=== PATIENT | male | born 1955 | race Caucasian/White ===

== ENCOUNTER → 2017-09-07 12:36 | Outpatient (CLI) | payer MEDICAID ==
[2013-12-17 08:02] VITALS: BMI 28.4
[~2017-09-07 12:36] MED LIST: ERYTHROCIN STE500 MG PO; NORCO 10/325 TA1 TA1 PO; TENORMIN50 MG PO; ZESTRIL40 MG PO
== END | disposition home or self-care (01) ==
LOC: D.US 12:36
DX: I65.23 Occlusion and stenosis of bilateral carotid arteries (principal)

== ENCOUNTER → 2019-03-30 13:20 | Outpatient (CLI) | payer MEDICARE ==
[2013-12-17 08:02] VITALS: BMI 28.4
== END | disposition home or self-care (01) ==
LOC: D.US 13:20
PROVIDERS: ATTEND Internal Medicine Cardiovascular Disease
DX: I65.23 Occlusion and stenosis of bilateral carotid arteries (principal)

== ENCOUNTER 2019-07-23 23:17 | Inpatient (IN) | payer MEDICARE ==
[~2019-07-23] VITALS: Ht 182.9 cm; Wt 95.5 kg
--- NOTE | ~2019-07-23 | HEMODYNAMI ---
PATIENT:CARLOS MACIAS MEDICAL RECORD: [id number] : 51 [id number] ADMISSION DATE: 07/24/19 Generatedon:07/26/201914:30 Patient name: CARLOS MACIAS Patient #: [id number] SSN: [id number] : 1955 Date of study: 07/26/2019 Page: Of Hemodynamic Procedure Report Patient Data Patient Demographics Procedure consent was obtained First Name: CARLOS Gender: Male Last Name: GILBERTO : 1955 Middle Initial: PETER Age: 63 year(s) Patient #: [id number] Race: SSN: [id number] Additional ID: [id number] Contact details Address: [address] [place] [address] State: [place] City: [facility] Zip code: [address] Past Medical History Allergies Allergen Reaction Date Comments Reported Other allergy 07/26/2019 PCN, IBUPROFEN Admission Admission Data Admission Date: 07/24/2019 Admission Time: 2:25 Admit Source: Emergency Insurance Payor: Medicare department Room #: D.2116 Height (in.): 72 BSA: 2.17 (m2) Height (cm.): 182.88 BMI: 28.4 (kg/m2) Weight (lbs.): 209.44 Weight (kg.): 95 Lab Results Lab Result Date: 07/26/2019 Lab Result Time: 0:00 Biochemistry Name Units Result Min Max BUN mg/dl 18 --(---*)-- 7 18 Creatinine mg/dl 1.3 --(---*)-- 0.6 1.3 eGFR ml/min 59 *-(----)-- 90 120 NONAFRICAN CBC Name Units Result Min Max Hematocrit % 35.9 *-(----)-- 42 54 Hemoglobin g/dl 11.7 *-(----)-- 13.5 17.5 Procedure Procedure Types Cath Procedure Diagnostic Procedure [facility] w/Coronaries Procedure Description Procedure Date Procedure Date: 07/26/2019 Procedure Start Time: 14:14 Procedure End Time: 14:28 Procedure Staff Name Function Joe Tam MD Performing Physician Anne Marie Canas RT Monitor Shelby Porter RT Scrub Noni Sesay RN Nurse Nadia Montejo RT Monitor Procedure Data Cath Procedure Fluoroscopy Diagnostic fluoroscopy Total fluoroscopy Time: 2.7 time: 2.7 min min Diagnostic fluoroscopy Total fluoroscopy dose: 428 dose: 428 mGy mGy Contrast Material Contrast Material Type Amount (ml) Isovue 300 71 Entry Location Entry Primary Successful Side Size Upsize Upsize Entry Closure Munoz ccessful Closure Location (Fr) 1 (Fr) 2 (Fr) Remarks Device Remarks Radial Right 6 Fr Mechanical artery Short Compression Estimated blood loss: 5 ml Diagnostic catheters Device Type Used For End Catheter Placement DIAGNOSTIC [place] 110cm 5 Procedure Fr catheter ([id number]) DIAGNOSTIC Pigtail 5Fr LV Angiography catheter ([id number]) Procedure Complications No complications Procedure Medications Medication Administration Route Dosage 0.9% NaCl I.V. 100 ml/hr Oxygen etCO2 Nasal cannula 2 l/min Lidocaine 2% added to field 20 Heparin Flush Bag added to field 2 bags (1000units/500ml NS) Radial Cocktail added to field 1 syringe (Verapamil 2mg/Nitro 400mcg/Heparin 1500units) Versed I.V. 2 mg Fentanyl I.V. 50 mcg Benadryl I.V. 50 mg Hemodynamics Rest BSA: 2.17 (m2) HGB: 11.7 (g/dl) O2 Consumption: Estimated: 250.48 (ml/min) O2 Co nsumption indexed: Estimated:115.43 (ml/min/m) Heart Rate: 67 (bpm) Pressure Samples Time Site Value (mmHg) Purpose Heart Use Rate(bpm) 14:21 LV 119/7,11 EDP 66 Gradients Valve Time Site Site Mean SEP/DFP Peak To Heart Use 1 2 (mmHg) (sec/min) Peak Rate (mmHg) (bpm) Aortic 14:22 LV AO 67 Snapshots Pre Cath Intra NCS Post Cath Vital Signs Time Heart Resp SPO2 etCO2 NIBP (mmHg) Rhythm Pain Sedation Rate (ipm) (%) (mmHg) Status Level (bpm) 13:56:29 68 15 98 15 144/87(115) NSR 0 (11) 10(A) , No pain 14:00:43 67 21 100 11 137/83(100) NSR 0 (11) 10(A) , No pain 14:04:55 64 22 98 17 145/81(109) NSR 0 (11) 10(A) , No pain 14:09:09 64 17 96 17 142/86(107) NSR 0 (11) 10(A) , No pain 14:13:23 66 18 99 20 133/83(98) NSR 0 (11) 10(A) , No pain 14:17:37 65 15 99 21.9 123/74(96) NSR 0 (11) 10(A) , No pain 14:21:49 68 20 98 18.1 130/72(104) NSR 0 (11) 10(A) , No pain 14:26:01 64 19 96 18.1 135/80(114) NSR 0 (11) 10(A) , No pain Medications Time Medication Route Dose Verified Delivered Reason Notes E ffectiveness by by 13:51:27 Benadryl I.V. 50 mg Joe Cheney used for Anel Lázaro procedure MD JOLLEY 13:51:31 0.9% NaCl I.V. 100 Joe Cheney used for ml/hr Anel Lázaro procedure MD JOLLEY 13:51:37 Oxygen etCO2 2 l/min Joe Cheney used for Nasal Anel Lázaro procedure cannula MD JOLLEY 13:51:42 Lidocaine 2% added 20ml Joe Diaz for local to vial Anel Anel anesthetic field MD MACIAS 13:51:48 Heparin Flush added 2 bags Joe Diaz used for Bag to Anel Anel procedure (1000units/500ml field MD MACIAS NS) 13:51:53 Radial Cocktail added 1 Joe Diaz used for (Verapamil to syringe Anel Anel procedure 2mg/Nitro field MD MACIAS 400mcg/Heparin 1500units) 14:12:24 Versed I.V. 2 mg Joe Conroya for AnelJairo Sesay sedation MD JOLLEY 14:12:35 Fentanyl I.V. 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 Start room use. 13:37:11 Informed consent obtained and on chart 13:38:05 Procedure Status Urgent Heart Cath (IP). 13:38:07 Time tracking: Regular hours (M-F 7:00 - 5:00) 13:38:10 Plan of Care:Hemodynamics will remain stable., Cardiac rhythm will remain stable., Comfort level will be maintained., Respiratory function will remain adequate., Patient/ family verbilizes understanding of procedure., Procedure tolerated without complication., Recovers from procedure without complications.. 13:38:17 H&P Date Dictated: 07/26/2019 Within 30 days and on chart.. 13:39:49 Patient allergic to Other allergyPCN, IBUPROFEN 13:43:11 Lab Result : BUN 18 mg/dl 13:43:11 Lab Result : Creatinine 1.3 mg/dl 13:43:11 Lab Result : eGFR NONAFRICAN 59 ml/min 13:43:11 Lab Result : Hemoglobin 11.7 g/dl 13:43:11 Lab Result : Hematocrit 35.9 % 13:43:48 ACCPatient has been prescribed/administered the following anti-anginal medication within the last 2 weeks: Beta Teto, KIMMIE-Inhibitor 13:43:53 ACC Patient presents with Stable Angina CCS Anginal Class 3--Marked limitation of physical activity, angina occurs with ordinary activity.. 13:44:12 Is patient on blood thinner?Yes 13:44:15 ACC The patient was administered the following blood thiners within the last 24 hours: ACCPlavix 13:47:19 Patient received from Med II to CCL 1 Alert and oriented. Tansferred to table in Supine position. 13:47:20 Warm blankets applied, and alyse hugger turned on for patient comfort. 13:47:21 Correct patient and procedure confirmed by team. 13:47:21 ECG and BP/O2 sat monitors applied to patient. 13:51:23 Vital chart was started 13:51:27 Benadryl 50 mg I.V. was administered by Noni Sesay RN; used for procedure; Verbal order read back and verified. 13:51:31 0.9% NaCl 100 ml/hr I.V. was administered by Noni Sesay RN; used for procedure; Verbal order read back and verified. 13:51:37 Oxygen 2 l/min etCO2 Nasal cannula was administered by Noni Sesay RN; used for procedure; Verbal order read back and verified. 13:51:42 Lidocaine 2% 20ml vial added to field was administered by Joe Tam MD; for local anesthetic; Verbal order read back and verified. 13:51:48 Heparin Flush Bag (1000units/500ml NS) 2 bags added to field was administered by Joe Tam MD; used for procedure; Verbal order read back and verified. 13:51:53 Radial Cocktail (Verapamil 2mg/Nitro 400mcg/Heparin 1500units) 1 syringe added to field was administered by Joe Tam MD; used for procedure; Verbal order read back and verified. 13:54:11 Baseline sample Acquired. 13:54:14 Rhythm: sinus rhythm 13:54:15 Full Disclosure recording started 13:54:15 Pre-procedure instructions explained to patient. 13:54:16 Pre-op teaching completed and patient verbalized understanding. 13:54:17 Family in patients room. 13:54:18 Patient NPO since Midnight. 13:54:19 Is the patient allergic to Iodine/contrast media? No. 13:54:28 Patient diabetic? No. 13:54:31 Previous problem with sedation/anesthesia? No ? 13:54:33 Snore? Yes 13:54:34 Sleep apnea? No 13:54:35 Deviated septum? No 13:54:40 Opens mouth fully? Yes 13:54:41 Sticks out tongue? Yes 13:54:43 Airway obstruction? Yes COPD 13:54:56 Dentures? No ? 13:55:00 Pre procedure: right dorsailis pedis pulse 1+ Palpable, but thready & weak; easily obliterated 13:55:02 Patient pain scale 0/10 ?. 13:55:10 Lab results completed and on chart. 13:55:47 Stress Test: no; abnormal NSTEMI 13:55:51 Right Radial & Right Groin area was prepped with chlora-prep and draped in sterile fashion 13:55:52 Alarms reviewed by R. N. 13:55:52 Sharps counted by scrub and verified by R.N. 13:58:19 Risk of Mortality: .1 13:58:22 Risk of blood transfusion: 1.6 13:58:27 Risk of PEDRITO: 1.8 14:06:12 IV patent on arrival in right antecubital with 0.9% NaCl at [facility]. 14:06:31 Patient Weight : 209.44 lbs 14:06:34 Patient Height : 72 inches 14:06:42 Admit Source: Emergency department 14:06:58 Insurance Payor : Medicare 14:11:13 --------ALL STOP TIME OUT------ 14:11:13 Final Timeout: patient, procedure, and site verified with staff and physician. All members of the team are in agreement. 14:11:16 Right Radial & Right Groin site verified by team. 14:11:19 Fire Safety Assessment: A--An alcohol-based skin anteseptic being used preoperatively., C--Open oxygen or nitrous oxide is being used., D--An ESU, laser, or fiber-optic light is being used. 14:11:23 Physical assessment completed. ASA score P 2 - A patient with mild systemic disease as per Joe Tam MD. 14:11:28 3a) 45-59 Moderately reduced kidney function. 14:11:35 Maximum allowable contrast dose (3.7 X eGFR X 0.75)164 ml. 14:11:38 Sedation plan: IV Moderate Sedation Medication:Versed, Fentanyl 14:12:20 Use device set Radial Dx or PCI 14:12:21 ACIST Syringe (75410) opened to sterile field. 14:12:23 Bag Decanter (2002S) opened to sterile field. 14:12:24 Versed 2 mg I.V. was administered by Noni Sesay RN; for sedation; Verbal order read back and verified. 14:12:24 ACIST Hand Control (37606) opened to sterile field. 14:12:24 ACIST Manifold (74430) opened to sterile field. 14:12:25 Tegaderm 4 x 4 (1626W) opened to sterile field. 14:12:26 Medline Cath Pack ([id number]) opened to sterile field. 14:12:26 MBrace Wrist Support ([id number]) opened to sterile field. 14:12:28 EMERALD Guide Wire (045-223) opened to sterile field. 14:12:29 SHEATH 6FR RAIN (6112272) opened to sterile field. 14:12:35 Fentanyl 50 mcg I.V. was administered by Noni Sesay RN; for sedation; Verbal order read back and verified. 14:14:03 Procedure started. 14:14:11 Local anesthetic to right radial artery with Lidocaine 2% by Joe Tam MD.INITIAL ACCESS ONLY 14:14:17 Zero performed for pressure channel P1 14:15:22 A 6 Fr Short sheath was inserted into the Right Radial artery 14:15:43 A DIAGNOSTIC [place] 110cm 5 Fr catheter (293229) was advanced over the wire and used for Procedure. 14:17:23 RCA angiography performed. 14:17:48 Injector settings: Ml/sec: 3, Volume: 6, 14:18:00 LCA angiography performed. 14:18:46 Injector settings: Ml/sec: 3, Volume: 6, 14:19:28 Catheter removed. 14:19:53 A DIAGNOSTIC Pigtail 5Fr catheter ([id number]) was advanced over the wire and used for LV Angiography. 14:21:50 LV gram done using ALANIS 14:22:01 EF : 55 % 14:22:19 LV hemodynamics recorded. 14:22:29 Catheter removed. 14:22:33 ZEPHYR REGULAR TR BAND (927063) opened to sterile field. 14:22:49 Sheath removed intact; hemostasis achieved with Mechanical Compression to the Right Radial artery. 14:22:53 Procedure ended.(Physican Out) 14:23:16 Contrast amount:Isovue 300 71ml. 14:23:46 Fluoroscopy time 02.70 minutes. 14:23:58 Fluoroscopy dose: 428 mGy 14:23:58 Flurop Dose total: 428 14:24:19 Dose Area Product 66764 mGy/cm. 14:24:27 Maximum allowable dose exceeded? No. 14:24:30 Sharps counted by scrub and verified by R.N. 14:24:47 [place] band inflated with 8cc of air. 14:24:51 Insertion/operative site no bleeding no hematoma. 14:25:07 Post right radial artery:stable 14:25:09 Post Procedure Pulses reassessed and unchanged 14:25:23 Post-procedure physical assessment completed. ASA score P 2 - A patient with mild systemic disease as per Joe Tam MD. 14:25:28 Post procedure rhythm: unchanged. 14:25:34 Estimated blood loss: 5 ml 14:25:37 Post procedure instruction explained to patient.Patient verbalizes understanding. 14:25:39 Patient needs reinforcement of post procedure teaching. 14:26:04 Procedure and supply charges have been captured, reviewed, submitted and are correct. 14:27:26 Procedure Complication : No complications 14:27:32 Vital chart was stopped 14:27:43 [facility] Findings: MVD- CABG consult 14:27:45 Operative report dictated upon procedure completion. 14:27:46 See physician's report for complete and final results. 14:27:50 Report given to [facility]. 14:28:36 Patient transfered to [facility] with Bed. 14:28:39 Procedure ended. 14:28:39 Full Disclosure recording stopped 14:28:44 End room use (Document Last) Device Usage Item Name Manufacture Quantity Catalog Hospital Part Current Minima l Lot# / Number Charge Number Stock Stock Serial# Code ACIST Acist 1 66164 286812 967619 598484 20 Syringe Medical (14446) Systems Inc Bag Microtek 1 2001S 717794 09198 426392 5 Decanter Medical Inc. () ACIST Hand Acist 1 32064 119914 797452 419293 5 Control Medical (68187) Systems Inc ACIST Acist 1 10616 055177 192034 845687 5 Manifold Medical (06674) Systems Inc Tegaderm 4 3M 1 1626W 921237 777917 400849 5 x 4 (1626W) Medline Medline 1 [id number] 544380 49354 086060 5 Cath Pack ([id number]) MBrace Advanced 1 140-0250-00 835179 66279 118016 5 Wrist Vascular Support Dynamics (921947672) EMERALD Cardinal 1 502-455 620153 966040 814794 5 Guide Wire Health (502-455) SHEATH 6FR Cardinal 1 7572783 583718 2452879 078774 5 RAIN Health (6061245) DIAGNOSTIC Terumo 1 40-5013 695075 214168 701382 5 [place] 110cm 5 Fr catheter (372477) DIAGNOSTIC Cardinal 1 [id number] 223530 128411 848425 5 Pigtail 5Fr Health catheter (174072C) ZEPHYR Cardinal 1 387698 199825 6910628 402371 5 REGULAR TR Health BAND (551436) Signature Audit [place] Stage Time Signature Unsigned Intra-Procedure 07/26/2019 Nadia 2:29:16 PM Nannemann RT(R) (CV) Intra-Procedure 07/26/2019 Noni Sesay 2:29:53 PM RN Intra-Procedure 07/26/2019 Joe Reed 2:30:20 PM Jairo MACIAS [facility] [address] [place] [address]
[2019-07-24] VITALS (7 sets, daily range): BP systolic 94–153; BP diastolic 47–89; Ht 182.9 cm; Wt 95.5 kg
--- NOTE | 2019-07-24 00:21 | NUR ---
PT LEFT ED VIA STRETCHER FOR CT. URINE SPECIMEN SENT TO LAB
[2019-07-24 00:23] LABS: APTT 28.1 SECONDS (22.8-39.4); CALC OSMOLALITY 291 mosm/kg (275-300); CALCIUM 8.4 mg/dL (8.5-10.1); CARBON DIOXIDE 25.4 mmol/L (21.0-32.0); CHLORIDE - SERUM 108 mmol/L (98-107); CREATININE - SERUM 1.5 mg/dL (0.6-1.3); GLUCOSE 131 mg/dL (74-106); INR 1.09 (0.85-1.17); PROTIME 13.6 SECONDS (11.6-15.0); SODIUM 144 mmol/L (136-145); UREA NITROGEN 21 mg/dL (7-18); eGFR NON AFRICAN AMERICAN 50 mL/min (90-120)
[2019-07-24 00:26] LABS: BASOPHILS 0.2 % (0-2); EOSINOPHILS 0 % (0-7); HEMATOCRIT 41.6 % (42.0-54.0); HEMOGLOBIN 13.6 g/dL (13.5-17.5); IMMATURE GRANULOCYTES 0.3 % (0-5); LYMPHOCYTES 7.4 % (15-50); MCH 31.2 pg (26.0-34.0); MCHC 32.7 g/dL (31.0-37.0); MCV 95.4 fL (80.0-100.0); MEAN PLATELET VOLUME 10.2 fL (7.4-10.4); MONOCYTES 7.9 % (2-11); NEUTROPHILS 84.2 % (40-80); PLATELET COUNT 170 10x3/uL (130-400); RBC 4.36 10x6/uL (4.20-6.10); RDW 12.8 % (11.5-14.5); WBC 13.2 10x3/uL (4.8-10.8)
--- NOTE | 2019-07-24 00:38 | NUR ---
PT RETURNED TO ED VIA STRETCHER
[2019-07-24 00:39] LABS: ALBUMIN 3.4 g/dL (3.4-5.0); ALKALINE PHOSPHATASE 75 U/L (46-116); ALT (SGPT) 21 U/L (10-68); BILIRUBIN - TOTAL 0.41 mg/dL (0.2-1.3); CKMB 0.4 U/L (0.0-3.6); CREATINE KINASE 62 UL (21-232); MAGNESIUM - SERUM 1.4 mg/dL (1.8-2.4); PROTEIN - SERUM 7.1 g/dL (6.4-8.2); THYROID STIMULATING HORMONE 0.28 uIU/mL (0.36-3.74)
[2019-07-24 00:43] LABS: APPEARANCE CLEAR (CLEAR); BILIRUBIN NEGATIVE (NEGATIVE); COLOR YELLOW (YELLOW); GLUCOSE NEGATIVE (NEGATIVE); KETONE NEGATIVE (NEGATIVE); NITRITE NEGATIVE (NEGATIVE); PROTEIN 1+ mg/dL (NEGATIVE)
[2019-07-24 00:44] LABS: BACTERIA FEW /hpf (NEGATIVE); EPITHELIAL CELLS 0-5 /hpf (0-5); WHITE CELLS - URINE 0-5 /hpf (NEGATIVE)
[2019-07-24 00:59] LABS: TROPONIN-I 0.293 ng/mL (0.000-0.060)
[2019-07-24 01:06] LABS: UDS - AMPHET NEGATIVE QUAL (NEGATIVE); UDS - BARB NEGATIVE QUAL (NEGATIVE); UDS - BENZO NEGATIVE QUAL (NEGATIVE); UDS - COCAINE NEGATIVE QUAL (NEGATIVE); UDS - OPIATE NEGATIVE QUAL (NEGATIVE); UDS - PCP NEGATIVE QUAL (NEGATIVE); UDS - THC NEGATIVE QUAL (NEGATIVE)
--- NOTE | 2019-07-24 01:10 | NUR ---
PLAN OF CARE DISCUSSED WITH PT AND FAMILY.
[2019-07-24] MEDS ORDERED: PLAVIX75 MG PO (03:45)
[2019-07-24] MEDS ORDERED: ROPINIROLE HCL0.5 MG PO (03:45)
--- NOTE | 2019-07-24 05:06 | NUR ---
NITROCELLULOSE MAKER REPORTED TO ME THAT THE PATIENT HAD A FEVER OF 103.3. PAGED ANNETTE MCKEON. RECEIVED ORDER FOR TYLENOL. TYLENOL GIVEN. PATIENT ONLY USING THE TOP SHEET TO COVER UP WITH.
--- NOTE | 2019-07-24 06:09 | NUR ---
RECHECKED PATIENT TEMPERATURE. 102.4. PLACED ICE PACKS UNDER BOTH ARMPITS AND GROIN.
[2019-07-24 07:33] LABS: CKMB 0.2 U/L (0.0-3.6); CREATINE KINASE 68 UL (21-232)
[2019-07-24 07:35] LABS: TROPONIN-I 0.487 ng/mL (0.000-0.060)
[2019-07-24 12:38] LABS: CKMB 0.7 U/L (0.0-3.6); CREATINE KINASE 111 UL (21-232)
[2019-07-24 12:39] LABS: TROPONIN-I 0.316 ng/mL (0.000-0.060)
--- NOTE | 2019-07-24 16:23 | NUR ---
TELEMETRY SR. ASSISTED UP TO CHAIR FOR BATH AND LINEN CHANGE. WILL CONT. PLAN OF CARE.
--- NOTE | 2019-07-24 19:00 | NUR ---
RECEIVED BEDSIDE REPORT. PATIENT IS ALERT AND ORIENTED. PATIENT IS BEING VERBALLY AGGRESSIVE WHEN ASKING HIM QUESTIONS AND UNCOOPERATIVE REFUSING TO ANSWER QUESTIONS. RESPIRATIONS ARE EVEN AND UNLABORED. NO S/S OF DISTRESS. NO C/O PAIN. WAS TOLD BY DAY SHIFT NURSE THAT MD WANTED PATIENT TO SHOWER. WHEN PATIENT WAS ASKED HE REFUSED. WILL TRY AGAIN. CALL LIGHT WITHIN REACH. WILL CPOC.
[2019-07-24 19:39] LABS: CKMB 1.2 U/L (0.0-3.6); CREATINE KINASE 152 UL (21-232)
[2019-07-24 19:56] LABS: TROPONIN-I 0.149 ng/mL (0.000-0.060)
[2019-07-25] VITALS: BP 126/54
[2019-07-25 04:00] VITALS: BP 123/64
[2019-07-25 05:26] LABS: BASOPHILS 0 % (0-2); EOSINOPHILS 0.3 % (0-7); HEMATOCRIT 36.2 % (42.0-54.0); HEMOGLOBIN 11.9 g/dL (13.5-17.5); IMMATURE GRANULOCYTES 0.4 % (0-5); LYMPHOCYTES 13.8 % (15-50); MCH 31.2 pg (26.0-34.0); MCHC 32.9 g/dL (31.0-37.0); MEAN PLATELET VOLUME 10.6 fL (7.4-10.4); MONOCYTES 5.7 % (2-11); NEUTROPHILS 79.8 % (40-80); PLATELET COUNT 136 10x3/uL (130-400); RBC 3.81 10x6/uL (4.20-6.10); RDW 12.9 % (11.5-14.5); WBC 11.4 10x3/uL (4.8-10.8)
[2019-07-25 05:50] LABS: ANION GAP 14.5 mmol/L (8-16); CALCIUM 7.7 mg/dL (8.5-10.1); CREATININE - SERUM 1.2 mg/dL (0.6-1.3); POTASSIUM - SERUM 3.5 mmol/L (3.5-5.1)
[2019-07-25 08:00] VITALS: BP 117/65
[2019-07-25 11:36] VITALS: BP 99/54
--- NOTE | 2019-07-25 13:38 | CN ---
PATIENT NAME:CARLOS MACIAS MEDICAL RECORD: [id number] : 51 LOCATION:D. D.2116 ADMIT DATE: 07/24/19 ACCOUNT: [id number] CONSULTING PHYSICIAN: PASQUALE OROPEZA MD REFERRING PHYSICIAN: KAYLEN MOSQUEDA MD DATE OF CONSULTATION: 07/24/2019 HISTORY OF PRESENT ILLNESS: A 63-year-old gentleman with no known history of coronary artery disease, has a history of hypertension, long-term smoking history as well as strong family history, initially admitted with confusion, found to have left lower lobe pneumonia. Temperature while in the hospital was elevated to 103. He reports feeling well up to the last couple of days, rapid downward course, actually responded nicely to antibiotics. His mental status appears to be clear this morning. He does report some pressure and heaviness with exertion of heart until this generalized deconditioning, etc. versus angina type symptomatology. Cardiac enzymes elevated consistent with NSTEMI, questionable type 1 versus type 2. We are asked to see him concerning his cardiovascular status. PAST MEDICAL HISTORY: Includes: 1. History of hypertension. 2. Questionable obstructive pulmonary disease and long-term smoking. SOCIAL HISTORY: Smokes about a pack a day. Stays quite active on his exercise program. Easily takes care of his ADLs. MEDICATIONS: Include Plavix 75 every day, lisinopril 40 every day, atenolol 50 every day. ALLERGIES: PENICILLIN AND IBUPROFEN. REVIEW OF SYSTEMS: The patient reports easy bruising but reports no swollen glands. The patient reports no fever, no night sweats, no significant weight gain, no significant weight loss. No significant exercise tolerance. The patient reports no dry eyes, no irritation, no vision change. Patient reports no difficulty hearing and no ear pain. Patient reports no frequent nose bleeds or nose and sinus problems. Patient reports on arm pain on exertion. No shortness of breath while lying down. No history of heart murmur. Patient reports no cough, no wheezing or coughing up blood. Patient reports no abdominal pain, no vomiting. Normal appetite. No diarrhea and not vomiting blood. No nausea and no constipation. Patient reports no incontinence. No difficulty urinating. No hematuria. No increased frequency. Patient reports no muscle aches. No weakness, no arthralgias, no back pain. No swelling of the extremities. Patient reports no abnormal mole, no jaundice, no rashes. Reports no loss of consciousness. No weakness and no numbness. No seizures, dizziness, or headaches. The patient reports no depression, no sleep disturbance, feeling safe in a relationship and no alcohol abuse. Patient reports on fatigue. Reports no runny nose or sinus pressure. No itching, no hives, and no frequent sneezing. PHYSICAL EXAMINATION: GENERAL: Pleasant gentleman in no acute distress, appears stated age. VITAL SIGNS: Blood pressure 128/80, pulse 109. HEENT: Normocephalic, atraumatic. NECK: No bruits noted. CONSULT REPORT [id number] CARLOS MACIAS HEART: Tachycardic, regular, II/ systolic ejection murmur. LUNGS: Diminished breath sounds, particularly the left lower lobe. ABDOMEN: Soft, nontender. EXTREMITIES: Pulses are preserved, 2+. There is no edema. DIAGNOSTIC DATA: ECG shows nonspecific ST-T changes. IMPRESSION: NSTEMI, questionable demand ischemic type 1 versus type 2, would like to clear pneumonitis. May consider angiography in the near future. TRANSINT:[id number] Voice Confirmation ID: [id number] DOCUMENT ID: [id number] PASQUALE OROPEZA MD at 1338 CC: [id number] DICTATION DATE: 07/24/19833 COMMUNICATIONS MAINTAINER: 07/24/19 1120 ADM IN [place] [address] [place] [address]
[2019-07-25 15:53] VITALS: BP 115/69
--- NOTE | 2019-07-25 18:45 | NUR ---
RECEIVED BEDSIDE REPORT. PATIENT IS ALERT AND ORIENTED, RESTING COMFORTABLY IN BED. RESPIRATIONS ARE EVEN AND UNLABORED. NO S/S OF DISTRESS. NO C/O PAIN. CALL LIGHT WITHIN REACH. NEEDS MET. WILL CPOC.
[2019-07-25 20:00] VITALS: BP 112/68
[2019-07-26] VITALS (7 sets, daily range): BP systolic 106–138; BP diastolic 61–84
[2019-07-26 05:40] LABS: BASOPHILS 0.1 % (0-2); EOSINOPHILS 1.2 % (0-7); HEMATOCRIT 35.9 % (42.0-54.0); HEMOGLOBIN 11.7 g/dL (13.5-17.5); IMMATURE GRANULOCYTES 0.1 % (0-5); MCHC 32.6 g/dL (31.0-37.0); MEAN PLATELET VOLUME 10.6 fL (7.4-10.4); MONOCYTES 10.1 % (2-11); NEUTROPHILS 65.5 % (40-80); PLATELET COUNT 147 10x3/uL (130-400); RBC 3.78 10x6/uL (4.20-6.10); RDW 12.8 % (11.5-14.5)
[2019-07-26 06:01] LABS: ANION GAP 13.1 mmol/L (8-16); CALCIUM 7.8 mg/dL (8.5-10.1); CARBON DIOXIDE 21.7 mmol/L (21.0-32.0); CREATININE - SERUM 1.3 mg/dL (0.6-1.3); POTASSIUM - SERUM 3.8 mmol/L (3.5-5.1); WBC 7.4 10x3/uL (4.8-10.8)
[2019-07-26 09:48] LABS: CHOL - HDL RATIO 5.4 ratio (2.3-4.9); LDL-HDL RATIO 3.4 ratio (1.5-3.5)
--- NOTE | 2019-07-26 12:00 | NUR ---
URINE SPECIMEN COLLECTED AND TAKEN TO LAB. WILL MONITOR.
--- NOTE | 2019-07-26 12:49 | EC ---
PATIENT:CARLOS MACIAS DATE OF SERVICE: 07/24/19 SEX: M MEDICAL RECORD: [id number] DATE OF : [birth year] LOCATION:D.M2 D.211 AGE OF PATIENT: 63 ADMISSION DATE: 07/24/19 REFERRING PHYSICIAN: INTERPRETING PHYSICIAN: ROSMERY ALEXANDRA MD ECHOCARDIOGRAM REPORT ECHO CHARGES 4 ECHO COMPLETE Date: 07/24/19 CLINICAL DIAGNOSIS: NON-STEMI ECHOCARDIOGRAPHIC MEASUREMENTS (adult normal given) AC root (d.<3.7cm) 3.1 cm LV Septum d (<1.2 cm> 0.7 cm Valve Excursion 1.8 cm LV Septum (systole) 0.9 cm Left Atria (s.<4.0cm> 4.5 cm LVPW d(<1.2cm) 1.3 cm RV (d.<2.3cm) 2.5 cm LVPW (sytole) 1.4 cm LV diastole(<5.6CM) 5.6 cm MV E-F(>70mm/sec) cm LV systole 4.8 cm LVOT Diameter 2.3 cm MV exc.(>10mm) cm Est.ejection fraction (50-75%) % DOPPLER: LVIT cm/sec A 73 cm/sec E 68 cm/sec LA cm/sec RVSP 19.3 mmHg LVOT 114 cm/sec AOP1/2T m/s Asc. Ao 149 cm/sec RVOT 92 cm/sec RA cm/sec PA 126 cm/sec AV Gradient Peak 8.9 mmHg AV Mean 4.8 mmHg AV Area 3.0 cm MV Gradient Peak 4.5 mmHg MV Mean 2.3 mmHg MV Area cm COMMENTS: Dye Worker: Everett REYESNINI TIM Metalsmith: 1 Dr. Alexandra TAPE# PACS Pericardial Effusion N DATE OF SERVICE: FINDINGS: 1. Left ventricular chamber size is within normal limits. Left ventricular systolic function is normal. Overall ejection fraction estimated at 55%. 2. Left atrium, right atrium, and right ventricular chamber size are within normal limits. 3. Valvular structures have normal structure and motion. 4. Doppler interrogation reveals no significant valvular insufficiency or stenosis. Pulmonary systolic pressure is estimated at 19 mmHg. ECHOCARDIOGRAM REPORT [id number] CARLOS MACIAS 5. No evidence of pericardial effusion or left ventricular thrombus. TRANSINT:[id number] Voice Confirmation ID: [id number] DOCUMENT ID: [id number] ROSMERY ALEXANDRA MD at 1249 CC: [id number] DICTATION DATE: 07/25/19 1520 HAT BRAIDER: 07/25/19 2216 ADM IN [place] [id number] [place] [id number]
--- NOTE | 2019-07-26 13:45 | NUR ---
leaving for chemical lab supervisor by bed. will cont. plan of care.
--- NOTE | 2019-07-26 14:48 | NUR ---
BACK FROM BEACH ATTENDANT. VS WNL. RIGHT WRIST STABLE WITHOUT BLEEDING OR HEMATOMA NOTED. WILL MONITOR.
[2019-07-27 04:00] VITALS: BP 136/62
[2019-07-27 05:28] LABS: BASOPHILS 0.2 % (0-2); EOSINOPHILS 2.6 % (0-7); HEMATOCRIT 37.4 % (42.0-54.0); HEMOGLOBIN 12.4 g/dL (13.5-17.5); IMMATURE GRANULOCYTES 0.3 % (0-5); LYMPHOCYTES 33.8 % (15-50); MCH 31.3 pg (26.0-34.0); MCHC 33.2 g/dL (31.0-37.0); MCV 94.4 fL (80.0-100.0); MEAN PLATELET VOLUME 10.4 fL (7.4-10.4); MONOCYTES 9.8 % (2-11); NEUTROPHILS 53.3 % (40-80); PLATELET COUNT 169 10x3/uL (130-400); RBC 3.96 10x6/uL (4.20-6.10); RDW 12.6 % (11.5-14.5); WBC 6.5 10x3/uL (4.8-10.8)
[2019-07-27 05:51] LABS: ANION GAP 12.6 mmol/L (8-16); CALCIUM 8.1 mg/dL (8.5-10.1); CARBON DIOXIDE 23.4 mmol/L (21.0-32.0); CREATININE - SERUM 1.3 mg/dL (0.6-1.3)
--- NOTE | 2019-07-27 07:15 | NUR ---
RECEIVED PT IN BED EYES CLOSED RESP UNLABORED SKIN W/D COLOR WNL NAD NOTED
[2019-07-27 09:00] VITALS: BP 154/81
[2019-07-27] MEDS ORDERED: OMNICEF300 MG PO (11:58)
--- NOTE | 2019-07-27 13:51 | OP ---
PATIENT NAME: CARLOS MACIAS MEDICAL RECORD: [id number] :51 LOCATION:D.M2 D.2116 ADMISSION DATE:07/24/19 SURGEON: PASQUALE OROPEZA MD DATE OF OPERATION: 07/26/2019 PROCEDURES: Left heart catheterization, selective coronary angiography, right radial approach. CATHETERS: Radial sheath, [place] catheter as well as pigtail catheter. The procedure was well tolerated. The patient returned to [place]. Sheath was removed. TR band was placed. FINDINGS: Left ventriculography in 30-degree ALANIS view: Normal wall motion and normal systolic function. CORONARY ANATOMY: LEFT MAIN: Left main is free of disease. LAD: Has 2 sequential stenoses; first before the takeoff and the segment after takeoff over the septal last waxer, both 80% with good target distally. CIRCUMFLEX: Circumflex has a long diffuse stenosis before giving rise to 2 large OMs, appears to be good target. RIGHT CORONARY ARTERY: Dominant artery, gives rise to PDA, long diffuse stenosis. IMPRESSION: Multivessel coronary artery disease, preserved LV systolic function. Given anatomy, probably he would be best served with coronary artery bypass grafting. Dr. Negro will be consulted for this purpose; however, the time will be later date given his recent pneumonitis and infectious process. TRANSINT:[id number] Voice Confirmation ID: [id number] DOCUMENT ID: [id number] PASQUALE OROPEAZ MD at 1351 CC: [id number] DICTATION DATE: 07/26/19 1429 CONCRETE FINISHER APPRENTICE: 07/26/19 2150 ADM IN [place] [id number] [place] [address]
[2019-07-27 13:53] VITALS: BP 110/65
--- NOTE | 2019-07-27 14:15 | NUR ---
REVIEWED DISCHARGE INSTRUCTIONS WITH PT STATES UNDERSTANDING COPY GIVEN DCD SALINE LOCK TO LAC WITH IV CATHETER INTACT SITE FREE OF REDNESS OR EDEMA PT DISCHARGED HOME LEFT UNIT IN STABLE CONDITION VIA W/C WITH ALL PERSONAL BELONGINGS
--- NOTE | 2019-07-27 16:47 | MORECARE ---
CASE MANAGEMENT DISCHARGE SUMMARY PATIENT: CARLOS MACIAS UNIT: [id number] ADM DATE: 07/24/19 AGE: 63 : 51 SEX: M ROOM/BED: D.2116 AUTHOR: CLAUDIA,DOC PHYSICIAN: REFERRING PHYSICIAN: KAYLEN MOSQUEDA MD DATE OF SERVICE: 07/27/19 Discharge Plan Patient Name: CARLOS MACIAS Facility: [facility]:[place] : 1955 Planned Disposition: Home Anticipated Discharge Date: 07/27/19 Discharge Date: 07/27/2019 Expected LOS: 3 Initial Reviewer: [email or web address] Initial Review Date: 07/27/2019 Generated: 07/27/19 5:46 pm Comments DCP- Discharge Planning Updated by [email or web address]: Keron Bean on 07/27/19 3:[address] Patient Name: CARLOS MACIAS Admission Status: ER Accout number: [id number] Admission Date: 07-24-2019 : 1955 Admission Diagnosis: Attending: KAYLEN MOSQUEDA Current LOS: 3 Anticipated DC Date: 07-27-2019 Planned Disposition: Home Primary Insurance: [employer] Discharge Planning Comments: CM MET WITH PT IN ROOM TO DISCUSS DISCHARGE PLANNING AND NEEDS. PT REPORTS LIVING AT HOME INDEPENDENTLY AND ALONE. PT HAS NO MEDICAL EQUIPMENT AND NO OUTSIDE SERVICES ASSISTING IN THE HOME. CM DISCUSSED AVAILABILITY OF HOME HEALTH, REHAB SERVICES AND MEDICAL EQUIPMENT. PT DENIES DISCHARGE NEEDS, REPORTS HIS SON WILL PICK HIM UP FOR DISCHARGE HOME. IMPORTANT MESSAGE FROM MEDICARE PROVIDED AND EXPLAINED. Rougher Operator: Keron Bean DCPIA - Discharge Planning Initial Assessment Updated by [email or web address]: Keron Bean on 07/27/19 4:42 pm * Is the patient Alert and Oriented? Yes * How many steps to enter\exit or inside your home? RAMP * PCP JONATHAN AGUERO AT [facility] * Pharmacy [facility] * Preadmission Environment Home Alone * ADLs Independent * Equipment None * Other Equipment NO MEDICAL EQUIPMENT PROVIDER PREFERNECE * List name and contact numbers for known caregivers / representatives who currently or will assist patient after discharge: CARLOS MACIASJR, * Verbal permission to speak to the caregivers and representatives has been obtained from the patient. N/A * Community resources currently utilized None * Please name any agencies selected above. NONE * Additional services required to return to the preadmission environment? No * Can the patient safely return to the preadmission environment? Yes * Has this patient been hospitalized within the prior 30 days at any hospital? 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
== END 2019-07-27 14:15 | disposition home or self-care (01) | DRG 280 ==
LOC: D.ER 23:17 → D.M2 07-24 02:25 → D.SDCHOLD 07-24 08:07 → D.M2 07-27 14:15
PROVIDERS: Family Medicine; Internal Medicine Interventional Cardiology; ADMIT Internal Medicine Nephrology; ATTEND Internal Medicine Nephrology
PROC: B2151ZZ Fluoroscopy of Left Heart using Low Osmolar Contrast (ICD-10-PCS; 2019-07-26)
PROC: 4A023N7 Measurement of Cardiac Sampling and Pressure, Left Heart, Percutaneous Approach (ICD-10-PCS; 2019-07-26)
PROC: B2111ZZ Fluoroscopy of Multiple Coronary Arteries using Low Osmolar Contrast (ICD-10-PCS; principal; 2019-07-26 13:30)
DX: I21.4 Non-ST elevation (NSTEMI) myocardial infarction (principal); G93.41 Metabolic encephalopathy; J18.9 Pneumonia, unspecified organism; N17.9 Acute kidney failure, unspecified; F17.213 Nicotine dependence, cigarettes, with withdrawal; E83.42 Hypomagnesemia; J44.9 Chronic obstructive pulmonary disease, unspecified; I10 Essential (primary) hypertension

== ENCOUNTER → 2020-03-28 10:54 | Outpatient (CLI) | payer MEDICARE ==
[2019-07-24 15:34] VITALS: BMI 28.5
[~2020-03-28 10:54] MED LIST changes: +OMNICEF300 MG PO; +PLAVIX75 MG PO; +ROPINIROLE HCL0.5 MG PO
== END | disposition home or self-care (01) ==
LOC: D.US 10:54
PROVIDERS: ATTEND Internal Medicine Cardiovascular Disease
DX: I65.23 Occlusion and stenosis of bilateral carotid arteries (principal)

== ENCOUNTER → 2020-04-04 13:29 | Outpatient (CLI) | payer MEDICARE ==
[2019-07-24 15:34] VITALS: BMI 28.5
== END | disposition home or self-care (01) ==
LOC: D.CT 13:29
PROVIDERS: ATTEND Internal Medicine Cardiovascular Disease
DX: I65.23 Occlusion and stenosis of bilateral carotid arteries (principal)